=== PATIENT | female | born 1960 | race African-American/Black ===

== ENCOUNTER 2017-11-05 18:43 | Emergency (ER) | payer MEDICAID ==
[~2017-11-05] VITALS: Ht 170.2 cm; Wt 89.0 kg
[~2017-11-05 18:43] MED LIST: ACYC200C PO; ASPI-1159 PO; CARV12.545 PO; CLON-457 PO; CYAN10009 PO; INSU100I13 SQ; INSU100I28 SQ; LORA10TA7 PO; LOSA50TA20 PO; MECL12.584 PO; METF10002 PO; MONT10TA21 PO; NIFE30TA94 PO; SIMV20TA6 PO; TYLENOL #3 PO
[2017-11-05] MEDS ORDERED: KETOROLAC 30MG/ML VIAL IV STA (19:19)
[2017-11-05] MEDS ORDERED: ONDANSETRON HCL 4MG/2ML VIAL IV STA (19:19)
[2017-11-05] MEDS ORDERED: SODIUM CHLORIDE 0.9% 500 ML IV ONE (19:19)
[2017-11-05] MEDS ORDERED: FAMOTIDINE 20MG/2ML VIAL IV STA (19:19)
[2017-11-05] MEDS ORDERED: MAGNESIUM/ALUMINUM HYDROXIDE/SIMETHICONE 30ML UDC PO STA (19:19)
[2017-11-05 19:42] LABS: BASOPHILS % 0.9 % (0.0-2.0); EOSINOPHILS % 2.5 % (0.0-5.0); HEMATOCRIT. 34.8 % (36.0-48.0); HEMOGLOBIN. 11.3 g/dL (12.0-16.0); LYMPHOCYTES % 45.4 % (20.0-50.0); MEAN CORPUSCULAR HEMOGLOBIN 25.8 pg (28.0-32.0); MEAN CORPUSCULAR VOLUME 79.3 fL (81.0-99.0); MONOCYTES % 8.1 % (2.0-8.0); NEUTROPHILS % 43.1 % (40.0-76.0); PLATELET 241 x1000/uL (130-400); RED BLOOD CELL COUNT 4.38 mill/uL (4.2-5.4); RED CELL DISTRIBUTION WIDTH 15.9 % (11.6-14.6)
[2017-11-05 19:46] LABS: CHLORIDE 103 mEq/L (98-107)
[2017-11-05 19:50] LABS: ETHANOL BLOOD < 10 mg/dL
[2017-11-05 19:51] LABS: D-DIMER 0.36 mg/L FEU (<0.50); PROTHROMBIN TIME 10.8 sec (9.4-11.6)
[2017-11-05 19:54] LABS: CREATINE KINASE 78 IU/L (26-192)
[2017-11-05] MEDS ORDERED: IOHEXOL-350 100 ML BOTTLE ONE (22:59)
[2017-11-05 23:47] LABS: *AMPHETAMINES SCREEN URINE NEGATIVE (NEGATIVE); *BARBITURATES SCREEN URINE NEGATIVE (NEGATIVE); *BENZODIAZEPINES SCREEN URINE NEGATIVE (NEGATIVE); *COCAINE SCREEN URINE NEGATIVE (NEGATIVE)
[2017-11-05 23:48] LABS: CANNABINOID URINE SCREEN NEGATIVE (NEGATIVE); METHADONE URINE SCREEN NEGATIVE (NEGATIVE); OPIATES URINE SCREEN PRESUMTIVE POSITIVE (NEGATIVE); PHENCYCLIDINE URINE SCREEN NEGATIVE (NEGATIVE)
[2017-11-06 00:21] VITALS: BP 123/88
== END 2017-11-06 00:54 | disposition home or self-care (01) ==
LOC: ER 18:43 → CANBEDREQ 11-06 01:05
DX: K21.9 Gastro-esophageal reflux disease without esophagitis (principal); R07.89 Other chest pain; I10 Essential (primary) hypertension; E78.00 Pure hypercholesterolemia, unspecified; E11.9 Type 2 diabetes mellitus without complications; Z79.82 Long term (current) use of aspirin; Z79.4 Long term (current) use of insulin; Z79.899 Other long term (current) drug therapy
CPT/HCPCS: 36415; 71045; 71275; 80053; 80305; 82550; 83690; 83880; 84443; 84484; 85025; 85379; 85610; 85730; 93005; 96361; 96374; 96375; 99285; G0482; J1885; J2405; J3490; J7030; J7040; Q9967

== ENCOUNTER 2018-06-25 06:58 | Emergency (ER) | payer MEDICAID ==
[~2018-06-25] VITALS: Ht 368.3 cm; Wt 91.0 kg
[~2018-06-25 06:58] MED LIST changes: +METF-416 PO; -METF10002 PO
[2018-06-25] MEDS ORDERED: CYCLOBENZAPRINE 10MG TABLET PO ONE (08:30)
[2018-06-25] MEDS ORDERED: KETOROLAC 60MG/2ML VIAL IM ONE (08:30)
[2018-06-25 09:46] VITALS: BP 150/87
== END 2018-06-25 09:49 | disposition home or self-care (01) ==
LOC: ER 06:58
DX: S09.8XXA Other specified injuries of head, initial encounter (principal); S16.1XXA Strain of muscle, fascia and tendon at neck level, initial encounter; V49.49XA Driver injured in collision with other motor vehicles in traffic accident, initial encounter; Y93.89 Activity, other specified; Y92.414 Local residential or business street as the place of occurrence of the external cause
CPT/HCPCS: 70450; 72125; 96372; 99284; J1885

== ENCOUNTER 2018-10-24 05:20 | Emergency (ER) | payer MEDICAID ==
[~2018-10-24] VITALS: Ht 165.1 cm; Wt 89.1 kg
[2018-10-24] MEDS ORDERED: ACETAMINOPHEN WITH CODEINE 300/30MG TABLET PO STA (07:35)
[2018-10-24] MEDS ORDERED: ONDANSETRON 4MG ODT PO STA (07:35)
[2018-10-24 08:06] LABS: BASOPHILS % 1.1 % (0.0-2.0); EOSINOPHILS % 2.9 % (0.0-5.0); HEMATOCRIT. 42.2 % (36.0-48.0); HEMOGLOBIN. 13.3 g/dL (12.0-16.0); LYMPHOCYTES % 43.8 % (20.0-50.0); MEAN CORPUSCULAR HEMOGLOBIN 25.4 pg (28.0-32.0); MEAN CORPUSCULAR VOLUME 80.7 fL (81.0-99.0); MEAN PLATELET VOLUME 8.9 fl (7.4-10.4); NEUTROPHILS % 44.2 % (40.0-76.0); PLATELET 193 x1000/uL (130-400); RED BLOOD CELL COUNT 5.23 mill/uL (4.2-5.4); RED CELL DISTRIBUTION WIDTH 16.6 % (11.6-14.6)
[2018-10-24 08:09] LABS: CHLORIDE 106 mEq/L (98-107)
[2018-10-24 10:47] LABS: CLARITY URINE CLOUDY (CLEAR); COLOR URINE YELLOW (YELLOW); KETONES URINE TRACE (NEGATIVE); LEUKOCYTE ESTERASE URINE NEGATIVE (NEGATIVE); NITRITE URINE NEGATIVE (NEGATIVE); OCCULT BLOOD URINE NEGATIVE (NEGATIVE); PH URINE 5.5 (4.5-8.0); PROTEIN URINE NEGATIVE (NEGATIVE); SPECIFIC GRAVITY URINE 1.029 (1.005-1.030); UROBILINOGEN URINE 0.2 E.U./dL (0.2-1.0)
[2018-10-24 11:42] VITALS: BP 140/81
== END 2018-10-24 12:13 | disposition home or self-care (01) ==
LOC: ER 05:20
DX: R10.0 Acute abdomen (principal); N93.9 Abnormal uterine and vaginal bleeding, unspecified; R09.89 Other specified symptoms and signs involving the circulatory and respiratory systems
CPT/HCPCS: 36415; 70360; 76705; 80053; 81003; 83690; 85025; 85610; 93005; 99284; Q0162

== ENCOUNTER 2018-12-07 16:07 | Emergency (ER) | payer MEDICAID ==
[~2018-12-07] VITALS: Ht 165.1 cm; Wt 86.2 kg
[~2018-12-07 16:07] MED LIST changes: -ASPI-1159 PO; +ASPI-1393 PO; -LOSA50TA20 PO; +LOSA50TA41 PO
[2018-12-07] MEDS ORDERED: IBUPROFEN 600MG TABLET PO ONE (23:45)
[2018-12-08 00:05] VITALS: BP 120/68
[2018-12-16] MEDS ORDERED: GABA-531 MT (10:52)
[2018-12-16] MEDS ORDERED: METO-385 MT (10:53)
[2018-12-16] MEDS ORDERED: OLOP5DRO14 EACHEYE (11:03)
[2018-12-16] MEDS ORDERED: LABE100T5 MT (11:28)
[2018-12-16] MEDS ORDERED: NIFE20CA MT (11:28)
[2018-12-16] MEDS ORDERED: NAPR220C61 MT (11:28)
[2018-12-16] MEDS ORDERED: CLON0.1T MT (11:28)
[2018-12-16] MEDS ORDERED: EMPA10TA MT (11:28)
== END 2018-12-08 00:06 | disposition home or self-care (01) ==
LOC: ER 17:50
DX: J32.9 Chronic sinusitis, unspecified (principal); M54.5 Low back pain; E11.9 Type 2 diabetes mellitus without complications; I10 Essential (primary) hypertension; Z98.890 Other specified postprocedural states; Z79.82 Long term (current) use of aspirin; Z79.4 Long term (current) use of insulin; Z79.899 Other long term (current) drug therapy
CPT/HCPCS: 99283